=== PATIENT | male | born 1930 | race Caucasian/White ===

== ENCOUNTER 2016-10-09 00:39 | Emergency (ER) | payer MEDICARE, OTHER ==
[~2016-10-09] VITALS: Ht 188 cm; Wt 121.0 kg
[~2016-10-09 00:39] MED LIST: Z.0.NO CURRENT MEDS
[2016-10-09 00:41] VITALS: BP 188/85; PULSE 79; RESP 16; TEMP 98.3; O2SAT 96
[2016-10-09] MEDS ORDERED: NAPR500 PO (00:51)
[2016-10-09 00:58] VITALS: BP 191/81; PULSE 64; O2SAT 97
[2016-10-09 01:03] VITALS: BP 161/70; PULSE 60; RESP 18; O2SAT 97
[2016-10-09] MEDS ORDERED: VANCOMYCIN INJ 1,800 MG in SODIUM CHLORID 0.9% 500 ML INJ 500 ML IV ONE (01:45)
--- NOTE | 2016-10-09 01:59 | RADRPT ---
EXAM DATE/TIME: 10/09/2016 01:49 [facility] COMPARISON: No previous studies available for comparison. INDICATIONS : Hand swelling. MEDICAL HISTORY : None. SURGICAL HISTORY : None. ENCOUNTER: Initial ACUITY: 1 day PAIN SCORE: 0/10 LOCATION: Left hand FINDINGS: Three view examination of the left hand demonstrates no soft tissue swelling, dislocation, or fractur e. The carpal bones appear intact. The interphalangeal and metacarpophalangeal joints are intact. Bony mineralization is normal. CONCLUSION: 1. No acute findings. 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 Glenn Canas MD on October 09, 2016 at 1:56 Board Certified Radiologist. This report was verified electronically.
--- NOTE | 2016-10-09 02:04 | PD ---
HPI Chief Complaint: Injury Time Seen by Provider: 01:23 Travel History International Travel<30 days: No Contact w/Intl Traveler<30days: No Traveled to known affect area: No History of Present Illness HPI Patient is an 86-year-old male who presents to emergency room with complaints of left hand cellulitis. Patient reports that last week on Saturday, he cut his with a knife while washing the dishes. Reports that he was seen by a physician and tetanus was updated. Patient concerned for cellulitis as he noticed increased swelling to his left hand with redness to his wrist. Patient with no fever/chills. No other c/o. PFSH Past Medical History Arthritis: Yes Cancer: No Diabetes: No Patient Takes Glucophage: No Diminished Hearing: No Glaucoma: No Genitourinary: Yes (prostate surgery) Hepatitis: No Hiatal Hernia: No Hypertension: No Inguinal Hernia: Yes Medical other: Yes ([place] PROSTATE) Thyroid Disease: No Tetanus Vaccination: < 5 Years Influenza Vaccination: Yes Past Surgical History Eye Surgery: Yes (CATARACT LEFT EYE) Genitourinary Surgery: Yes (PROSTATECTOMY) Pacemaker: No Prostatectomy: Yes Tonsillectomy: Yes Social History Alcohol Use: No Tobacco Use: No Substance Use: No Allergies-Medications (Allergen,Severity, Reaction): Coded Allergies: famotidine (Verified Allergy, Severe, BLEEDIN ON URINATION AND SEVERE H/A , 10/09/16) Reported Meds & Prescriptions Reported Meds & Active Scripts Active Reported Naprosyn (Naproxen) 500 Mg Tab 500 Mg PO BID Review of Systems General / Constitutional: No: Fever, Chills Eyes: No: Visual changes HENT: No: Headaches Cardiovascular: No: Chest Pain or Discomfort Respiratory: No: Shortness of Breath Gastrointestinal: No: Abdominal Pain Genitourinary: No: Dysuria Musculoskeletal: No: Pain Skin: Positive Other (cellulitis), No Rash Neurologic: No: Weakness Psychiatric: No: Depression Endocrine: No: Polydipsia Hematologic/Lymphatic: No: Easy Bruising Physical Exam Narrative GENERAL: No acute distress, nontoxic SKIN: Focused skin assessment warm/dry. HEAD: Atraumatic. Normocephalic. EYES: Pupils equal and round. No scleral icterus. No injection or drainage. ENT: No nasal bleeding or discharge. Mucous membranes pink and moist. NECK: Trachea midline. No JVD. CARDIOVASCULAR: Regular rate and rhythm. No murmur appreciated. RESPIRATORY: No accessory muscle use. Clear to auscultation. Breath sounds equal bilaterally. GASTROINTESTINAL: Abdomen soft, non-tender, nondistended. Hepatic and splenic margins not palpable. MUSCULOSKELETAL: No obvious deformities. No clubbing. No cyanosis. No edema to RUE LUE: patient with mild swelling to left hand, patient with healing wound to his thumb, patient does have redness to his right wrist - cellulitis is not circumferential. patient with good rom to all fingers as well as wrist, pulses intact, neurovascularly intact NEUROLOGICAL: Awake and alert. No obvious cranial nerve deficits. Motor grossly within normal limits. Normal speech. PSYCHIATRIC: Appropriate mood and affect; insight and judgment normal. Data Data Last Documented VS Vital Signs Date Time Temp Pulse Resp B/P (MAP) Pulse Ox O2 Delivery O2 Flow Rate FiO2 10/09/16 01:03 60 18 161/70 (100) 97 Room Air 10/09/16 00:41 98.3 Orders Orders Hand, Complete (Oip0sau) (10/09/16 ) Basic Metabolic Panel (Bmp) (10/09/16 01:45) Complete Blood Count With Diff (10/09/16 01:45) Iv Access Insert/Monitor (10/09/16 01:45) Vancomycin Inj (Vancomycin Inj) (10/09/16 01:45) Labs Laboratory Tests Test 10/09/16 02:05 White Blood Count 5.1 TH/MM3 Red Blood Count 3.52 MIL/MM3 Hemoglobin 11.2 GM/DL Hematocrit 33.7 % Mean Corpuscular Volume 96.0 FL Mean Corpuscular Hemoglobin 31.9 PG Mean Corpuscular Hemoglobin Concent 33.3 % Red Cell Distribution Width 14.4 % Platelet Count 190 TH/MM3 Mean Platelet Volume 8.4 FL Neutrophils (%) (Auto) 63.8 % Lymphocytes (%) (Auto) 17.8 % Monocytes (%) (Auto) 9.4 % Eosinophils (%) (Auto) 8.4 % Basophils (%) (Auto) 0.6 % Neutrophils # (Auto) 3.2 TH/MM3 Lymphocytes # (Auto) 0.9 TH/MM3 Monocytes # (Auto) 0.5 TH/MM3 Eosinophils # (Auto) 0.4 TH/MM3 Basophils # (Auto) 0.0 TH/MM3 CBC Comment DIFF FINAL Differential Comment Blood Urea Nitrogen 17 MG/DL Creatinine 0.95 MG/DL Random Glucose 91 MG/DL Calcium Level 8.4 MG/DL Sodium Level 142 MEQ/L Potassium Level 4.1 MEQ/L Chloride Level 110 MEQ/L Carbon Dioxide Level 26.9 MEQ/L Anion Gap 5 MEQ/L Estimat Glomerular Filtration Rate 76 ML/MIN MDM Medical Decision Making Medical Screen Exam Complete: Yes Emergency Medical Condition: Yes Interpretation(s) Vital Signs Date Time Temp Pulse Resp B/P (MAP) Pulse Ox O2 Delivery O2 Flow Rate FiO2 10/09/16 01:03 60 18 161/70 (100) 97 Room Air 10/09/16 00:58 64 191/81 (117) 97 10/09/16 00:52 95 Room Air 10/09/16 00:41 98.3 79 16 188/85 (119) 96 Differential Diagnosis Differential includes cellulitis, FB Narrative Course 86 year old male who presents to ER of cellulitis to his left hand - reports that he noticed the redness and swelling after he cut his thumb on a kitchen knife last week on Saturday. Tetanus is up to date. VSS. Patient afebrile xray of hand ordered to evaluate for fb. labs ordered. will give a dose of iv vancomycin Vital Signs Date Time Temp Pulse Resp B/P (MAP) Pulse Ox O2 Delivery O2 Flow Rate FiO2 10/09/16 01:03 60 18 161/70 (100) 97 Room Air 10/09/16 00:58 64 191/81 (117) 97 10/09/16 00:52 95 Room Air 10/09/16 00:41 98.3 79 16 188/85 (119) 96 CBC & BMP Diagram 10/09/16 02:05 Calcium Level 8.4 L Xray of hand: no acute findings. mild to moderate ostearthritis of left wrist and hand Plan to discharge patient home with a prescription for some Bactrim for treatment of cellulitis. Patient will return to the emergency room symptoms worsen or progress. Discussed need for follow-up with his primary care doctor in 2-3 days, he will return to the emergency room as needed. Diagnosis Primary Impression: Cellulitis of left hand excluding fingers and thumb Patient Instructions: General Instructions Additional Instructions: Please take all medications as prescribed Please follow-up with your primary care doctor in 2-3 days Return to the emergency room if symptoms worsen or progress or if you develop any fevers or chills Return to the emergency room as needed. Med/Other Pt SpecificInfo: Prescription(s) given Scripts Sulfamethoxazole-Trimethoprim (Bactrim DS) 800-160 Mg Tab 1 TAB PO BID for Infection, #20 TAB 0 Refills Prov: Sunni Valladares DO 10/09/16 Cephalexin (Keflex) 500 Mg Cap 500 MG PO Q6H for Infection for 10 Days, CAP 0 Refills Prov: Sunni Valladares DO 10/09/16 Disposition: 01 DISCHARGE HOME Condition: Stable Sunni Valladares DO Oct 09, 2016 02:04
[2016-10-09 02:14] LABS: AUTOMATED NEUTROPHIL # 3.2 TH/MM3 (1.8-7.7); BASOPHIL % 0.6 % (0.0-2.0); EOSINOPHIL # 0.4 TH/MM3 (0-0.4); EOSINOPHIL % 8.4 % (0.0-4.0); HEMATOCRIT 33.7 % (39.0-51.0); HEMO FLAGS DIFF FINAL; LYMPH % 17.8 % (9.0-44.0); LYMPHOCYTE # 0.9 TH/MM3 (1.0-4.8); MEAN CORPUSCULAR HEMOGLOBIN 31.9 PG (27.0-34.0); MEAN CORPUSCULAR HGB CONC 33.3 % (32.0-36.0); MONO % 9.4 % (0.0-8.0); NEUT % 63.8 % (16.0-70.0); PLATELET COUNT 190 TH/MM3 (150-450); RED BLOOD COUNT 3.52 MIL/MM3 (4.50-5.90); RED CELL DISTRIBUTION WIDTH 14.4 % (11.6-17.2); WHITE BLOOD COUNT 5.1 TH/MM3 (4.0-11.0)
[2016-10-09 02:44] LABS: BICARBONATE 26.9 MEQ/L (21.0-32.0); POTASSIUM 4.1 MEQ/L (3.5-5.1)
[2016-10-09] MEDS ORDERED: BACT800T5 PO (03:15)
[2016-10-09] MEDS ORDERED: CEPH-460 PO (03:15)
[2016-10-09 04:18] VITALS: PULSE 57; RESP 18; O2SAT 99
[2016-10-09 04:49] VITALS: BP 168/71; PULSE 58; RESP 18; O2SAT 98
[2016-11-12] MEDS ORDERED: NAPR500T PO (12:20)
[2016-11-12] MEDS ORDERED: FERR200T PO (12:20)
[2016-11-12] MEDS ORDERED: OMEG100010 PO (12:20)
[2016-11-12] MEDS ORDERED: TYLE325T PO (13:05)
== END 2016-10-09 05:00 | disposition home or self-care (01) ==
LOC: NEPC 00:39
DX: L03.114 Cellulitis of left upper limb (principal); Z85.46 Personal history of malignant neoplasm of prostate
CPT/HCPCS: 73130; 80048; 85025; 96365; 96366; 99284; J3370; J7040

== ENCOUNTER 2016-10-19 05:41 | Emergency (ER) | payer OTHER ==
[~2016-10-19] VITALS: Ht 188 cm; Wt 115.0 kg
[~2016-10-19 05:41] MED LIST changes: +BACT800T5 PO; +CEPH-460 PO; +NAPR500 PO; -Z.0.NO CURRENT MEDS
[2016-10-19 05:43] VITALS: BP 159/71; PULSE 68; RESP 16; TEMP 98.1; O2SAT 96
--- NOTE | 2016-10-19 06:01 | PD ---
HPI Chief Complaint: Skin Problem Time Seen by Provider: 05:57 Travel History International Travel<30 days: No Contact w/Intl Traveler<30days: No Traveled to known affect area: No History of Present Illness HPI 86-year-old male presents for cellulitis recheck. He was seen here on October 09 after sustaining a accidental wound to the left thumb he had developed cellulitis of the left hand/wrist. He was started on Bactrim and Keflex after receiving an IV dose of vancomycin. At that time he is having erythema of the skin. He reports that the pain, redness of the skin has completely resolved and he wanted to be reevaluated to make sure that he did not need additional antibiotics. He is on his last day of Bactrim. He reports a slight "heaviness " sensation in the dorsum of the left hand but beyond that he is completely asymptomatic. Denies fevers, chills, drainage, new injury. No history of diabetes, is not on any immunosuppressive medication. No other complaints. PFSH Past Medical History Arthritis: Yes Cancer: No Diabetes: No Diminished Hearing: No Glaucoma: No Genitourinary: Yes (prostate surgery) Hepatitis: No Hiatal Hernia: No Hypertension: No Inguinal Hernia: Yes Medical other: Yes ([place] PROSTATE) Thyroid Disease: No Past Surgical History Eye Surgery: Yes (CATARACT LEFT EYE) Genitourinary Surgery: Yes (PROSTATECTOMY) Pacemaker: No Prostatectomy: Yes Tonsillectomy: Yes Other Surgery: Yes Social History Alcohol Use: No Tobacco Use: No Substance Use: No Allergies-Medications (Allergen,Severity, Reaction): Coded Allergies: famotidine (Verified Allergy, Severe, BLEEDIN ON URINATION AND SEVERE H/A , 10/19/16) Reported Meds & Prescriptions Reported Meds & Active Scripts Active Bactrim DS (Sulfamethoxazole-Trimethoprim) 800-160 Mg Tab 1 Tab PO BID Keflex (Cephalexin) 500 Mg Cap 500 Mg PO Q6H 10 Days Reported Naprosyn (Naproxen) 500 Mg Tab 500 Mg PO BID Review of Systems Except as stated in HPI: all other systems reviewed are Neg Physical Exam Narrative GENERAL: Well-developed well-nourished male in no acute distress SKIN: Warm and dry. No erythema, no induration, no tenderness to palpation. HEAD: Atraumatic. Normocephalic. EYES: Pupils equal and round. No scleral icterus. No injection or drainage. ENT: No nasal bleeding or discharge. Mucous membranes pink and moist. NECK: Trachea midline. No JVD. CARDIOVASCULAR: Regular rate and rhythm. No murmur appreciated. RESPIRATORY: No accessory muscle use. Clear to auscultation. Breath sounds equal bilaterally. MUSCULOSKELETAL: Full range of motion of the left hand, wrist, forearm with no discomfort, no soft tissue swelling, no cellulitic changes. NEUROLOGICAL: Awake and alert. No obvious cranial nerve deficits. Motor grossly within normal limits. Normal speech. Data Data Last Documented VS Vital Signs Date Time Temp Pulse Resp B/P (MAP) Pulse Ox O2 Delivery O2 Flow Rate FiO2 10/19/16 05:43 98.1 68 16 159/71 (100) 96 Room Air MDM Medical Decision Making Medical Screen Exam Complete: Yes Emergency Medical Condition: Yes Medical Record Reviewed: Yes Differential Diagnosis Resolved cellulitis, worsening cellulitis, abscess, osteomyelitis, necrotizing fasciitis, erysipelas, tenosynovitis Narrative Course Physical examination reveals no evidence of infectious process. Recommended finishing his Bactrim prescription. Discussed signs and symptoms of worsening infection outboard returning to the emergency room. Stable for discharge. Diagnosis Primary Impression: Cellulitis Qualified Codes: L03.90 - Cellulitis, unspecified Additional Instructions: Finish the prescriptions as prescribed. As discussed, monitor for signs of worsening infection such as increasing redness, increasing pain, red streaks up the arm, fevers and return for any evidence of worsening infection. Med/Other Pt SpecificInfo: No Change to Meds Disposition: 01 DISCHARGE HOME Condition: Stable Curtis Bui Oct 19, 2016 06:01
[2016-11-12] MEDS ORDERED: NAPR500T PO (12:20)
[2016-11-12] MEDS ORDERED: FERR200T PO (12:20)
[2016-11-12] MEDS ORDERED: OMEG100010 PO (12:20)
[2016-11-12] MEDS ORDERED: TYLE325T PO (13:05)
== END 2016-10-19 06:22 | disposition home or self-care (01) ==
LOC: NEPD 05:41
DX: L03.90 Cellulitis, unspecified (principal); Z87.39 Personal history of other diseases of the musculoskeletal system and connective tissue; Z87.448 Personal history of other diseases of urinary system
CPT/HCPCS: 99281; 99282

== ENCOUNTER → 2016-11-12 | Outpatient (CLI) | payer OTHER ==
[~2016-11-12] MED LIST changes: +ADJUSTABLE COMM1 MIS; -BACT800T5 PO; -CEPH-460 PO; +FERR200T PO; +HYDR-3583 PO; -NAPR500 PO; +NAPR500T PO; +OMEG100010 PO; +TYLE325T PO; +WALKER WHEELS/F1 MIS; +XARE10TA PO
== END ==
LOC: CPRE 11:55
PROVIDERS: ATTEND Orthopaedic Surgery Orthopaedic Surgery of the Spine
DX: M16.11 Unilateral primary osteoarthritis, right hip (principal)

== ENCOUNTER 2016-11-20 05:42 | Inpatient (IN) | payer OTHER, MEDICARE ==
[~2016-11-20] VITALS: Ht 188 cm; Wt 115.6 kg
[~2016-11-20 05:42] MED LIST changes: -ADJUSTABLE COMM1 MIS; -HYDR-3583 PO; -WALKER WHEELS/F1 MIS; -XARE10TA PO
[2016-11-20] MEDS ORDERED: LACTATED RINGER'S 1000 ML IV PRN (06:30)
[2016-11-20] MEDS ORDERED: VANCOMYCIN 1000 MG/NS 250 ML (for <70 kg) IV SCH ×2 (06:30)
[2016-11-20] MEDS ORDERED: INSULIN HUMAN REGULAR 1,000 UNITS/10 ML VIAL SQ PRN (06:30)
[2016-11-20] MEDS ORDERED: SODIUM CHLORID 0.9% 500 ML IV PRN (06:30)
[2016-11-20] MEDS ORDERED: ceFAZolin 2 GM PREMIX 50 ML IV SCH (06:30)
[2016-11-20] MEDS ORDERED: POVIDONE IODINE 7.5% SCRUB 118 ML BOTTLE TOPICAL SCH (06:30)
[2016-11-20] MEDS ORDERED: CHLORHEXIDINE GLUCONATE 2 % 1 PACK (2 CLOTHS) TOPICAL PRN (06:30)
[2016-11-20] MEDS ORDERED: METOPROLOL TARTRATE 25 MG TAB PO PRN (06:30)
[2016-11-20] MEDS ORDERED: TRANEXAMIC ACID IV SCH (06:30)
[2016-11-20] MEDS ORDERED: SODIUM CHLORIDE 0.9% IV SCH (06:30)
[2016-11-20] MEDS ORDERED: POVIDONE IODINE 5% (ANTISEPSIS KIT) 4 APPLICATIONS EACH NARE PRN (06:30)
[2016-11-20] MEDS ORDERED: EXPAREL PERI-ARTICULAR INJECTION (TOTAL VOL. 60 ML) P-ARTICULR SCH ×2 (06:30)
[2016-11-20] MEDS ORDERED: GENTAMICIN SULFATE 80 MG/2 ML VIAL ONE (06:52)
[2016-11-20 07:32] LABS: BLOOD, URINE NEG (NEG); COMMENT (UR) CULT NOT INDICATED; CULTURE IF INDICATED CULT NOT INDICATED; GLUCOSE,URINE NEG (NEG); KETONE, URINE NEG (NEG); MUCUS URINE FEW /lpf (OCC); NITRITE,URINE NEG (NEG); SQUAMOUS EPITHELIAL CELL URINE 1 /hpf (0-5); URINE COLOR YELLOW (YELLW/STRAW)
[2016-11-20] MEDS ORDERED: NALOXONE HCL 0.4 MG/ML AMP IV PRN (11:30)
[2016-11-20] MEDS ORDERED: ALUMINUM/MAGNESIUM/SIMETH 30 ML CUP PO PRN (11:30)
[2016-11-20] MEDS ORDERED: MISCELLANEOUS NURSING INFORMATION XX PRN (11:30)
[2016-11-20] MEDS ORDERED: MORPHINE SULFATE 8 MG/ML INJ IM PRN (11:30)
[2016-11-20] MEDS ORDERED: ONDANSETRON HCL 4 MG/2 ML VIAL IVP PRN (11:30)
[2016-11-20] MEDS ORDERED: TEMAZEPAM 15 MG CAP PO PRN (11:30)
[2016-11-20] MEDS ORDERED: ACETAMINOPHEN/HYDROcodone 325 MG/10 MG TAB PO PRN (11:30)
[2016-11-20] MEDS ORDERED: Post-op Orders (for Pharmacy) MISC XX ONE (11:30)
--- NOTE | 2016-11-20 11:30 | PD.OP ---
cc: Marquis Rogers. Operative Report Date of Surgery: Nov 20, 2016 Preoperative Diagnosis: Osteoarthritis right hip Postoperative Diagnosis: Same Procedure: Right total hip replacement arthroplasty Anesthesia: Gen. Surgeon: Marquis Rogers Sane Nurse(s): DARLIN Madrid Operation and Findings: EBL: 200 cc INDICATION: This patient is an 86-year-old white male. He has a BMI of 33. He has a significant anterior PMS. He has long-term treatment of osteoarthritis of the right hip. He's had a previous left total hip replacement and has done well elsewhere. He presents for posterior total hip replacement. NOTE: Roopa Madrid PA-C was present for the entire surgical procedure as my public relations assistant. In my medical opinion her skill and care was necessary for the proper management of this patient. COMPONENTS: COMPANY: [employer] CUP: [place], 56 mm, 100 series STEM: Size 7, high offset, [place], press-fit HEAD: 36 mm, +1.5 neck length, 12/14 taper PROCEDURE: This patient was brought to the operating room and anesthetized in the supine position and positioned on the routine table in the clean air suite. The patient was then rolled to a right side up lateral position and held with a Biomet hip positioner. The hip and leg was scrubbed with alcohol followed by Hibiclens followed by chloro prep and draped sterilely. A timeout was done and antibiotics were given within a routine time window. A 4 inch incision was made starting along the posterior one third of the greater trochanter. The iliotibial band was opened in line with the incision. The Charnley retractors were positioned. The posterior capsule and external rotators were taken down together in a sleeve. The sciatic nerve was palpated to be free of any obstruction or compression and posterior to the hip joint without any evidence of traction from the retractor. The neck was exposed. Deep retractors allowed good visualization. The neck was osteotomized at the right location and the head and neck was taken to the back table. The acetabulum was inspected. Deep retractors were positioned. The acetabulum was deepened down to the floor and started with a proper size reamer and reaming up to 55 mm. This was trialed with the same size trial. Overall fit was satisfactory. The final cup was placed in approximately 40 of abduction and 30 of forward flexion. The final liner was positioned. Retractors were positioned allowing good visualization of the proximal femur. A box osteotome was utilized followed by progressive broaching for the Preston stem. This was reamed and broached and eventually advanced to a size 56 stem. A trial reduction showed satisfactory stability. Offset was satisfactory. Leg length was reestablished. At 90 of flexion it was stable to 50 of internal rotation. The hip could not be subluxed anteriorly. The canal was irrigated copiously. The final stem was inserted in approximately 20 of anteversion. The final head was impacted. The hip was reduced and stability, offset and leg length was as previously noted. The posterior capsule and external rotators were repaired through bone with interrupted #2 Tycron sutures. The piriformis muscle was repaired with the same. The iliotibial band with interrupted #1 Vicryl sutures. Subcutaneous tissue was approximated with 2-0 Vicryl suture and skin with running intradermal 3-0 Vicryl followed by Steri-Strips and benzoin. A sterile dressing was applied.. The sponge count needle counts and instrument counts were all correct. The patient was awakened and taken to the recovery room in satisfactory condition FINDINGS: There was severe osteoarthritis of the right hip. The final solution was excellent. Stability was quite good. No complication could be appreciated. Marquis Rogers MD Nov 20, 2016 11:30
[2016-11-20] MEDS ORDERED: XARE10TA PO (11:35)
[2016-11-20] MEDS ORDERED: HYDR-3583 PO (11:35)
[2016-11-20] MEDS ORDERED: ROCURONIUM INJ 50 MG/5 ML SYRINGE IV PUSH ONE (12:00)
[2016-11-20] MEDS ORDERED: ePHEDrine/NS 25 MG/5 ML SYR IV ONE (12:00)
[2016-11-20] MEDS ORDERED: GLYCOPYRROLATE 1 MG/5 ML SYRINGE IV PUSH ONE (12:00)
[2016-11-20] MEDS ORDERED: DEXAMETHASONE SOD PHOS 4 MG/ML VIAL IV ONE (12:00)
[2016-11-20] MEDS ORDERED: LIDOCAINE HCL 1% PF 5 ML AMPULE OTHER ONE (12:00)
[2016-11-20] MEDS ORDERED: MORPHINE SULFATE 4 MG/ML INJ IV ONE (12:00)
[2016-11-20] MEDS ORDERED: ONDANSETRON HCL 4 MG/2 ML VIAL IV PUSH ONE (12:00)
[2016-11-20] MEDS ORDERED: NEOSTIGMINE 3 MG/3 ML SYR IV ONE (12:00)
[2016-11-20] MEDS ORDERED: PROPOFOL 200 MG/20 ML AMP IV ONE (12:00)
[2016-11-20] MEDS ORDERED: MORPHINE SULFATE 30 MG/30 ML PCA IV SCH (12:00)
[2016-11-20] MEDS: LACTATED RINGER'S 1000 ML INJ 1,000 ML IV SCH (12:00)
[2016-11-20] MEDS ORDERED: PHENYLEPH/NS 1000 MCG/10 ML SYR IV ONE (12:00)
[2016-11-20] MEDS ORDERED: DO NOT ADM ANY ANTICOAGULANT DRUGS PRN (12:02)
[2016-11-20] MEDS ORDERED: SODIUM CHLORIDE 0.9% FLUSH 10 ML FLUSH IV FLUSH PRN (12:15)
[2016-11-20] MEDS ORDERED: GLYCOPYRROLATE 0.2 MG/ML VIAL ONE (12:28)
[2016-11-20] MEDS ORDERED: GLYCOPYRROLATE 0.2 MG/ML VIAL IV PUSH ONE (13:30)
--- NOTE | 2016-11-20 14:12 | RADRPT ---
EXAM DATE/TIME: 11/20/2016 13:40 [facility] COMPARISON: No previous studies available for comparison. INDICATIONS : Post op right total hip. MEDICAL HISTORY : Unobtainable. SURGICAL HISTORY : Unobtainable. ENCOUNTER: Initial ACUITY: 1 day PAIN SCORE: Non-responsive. LOCATION: Right hip FINDINGS: Examination of the hip demonstrates total hip arthroplasty in satisfactory position. The alignment is anatomic. CONCLUSION: Post surgical changes as above. Josias Barnes MD on November 20, 2016 at 14:10 Board Certified Radiologist. This report was verified electronically.
--- NOTE | 2016-11-20 16:38 | EKG ---
Date Performed: 11/20/2016 Time Performed: 06:55:25 PTAGE: 86 years EKG: SINUS BRADYCARDIA BORDERLINE ECG NO PREVIOUS TRACING DOCTOR: Xena Brunner Interpretating Date/Time 11/20/2016 16:34:26
[2016-11-20 17:44] VITALS: BP 158/67; PULSE 57; RESP 17; TEMP 97; O2SAT 100
[2016-11-20 18:25] VITALS: O2SAT 97
[2016-11-20 19:54] VITALS: BP 145/68; PULSE 81; RESP 18; TEMP 98.1; O2SAT 98
[2016-11-20] MEDS: MAGNESIUM HYDROXIDE SUSP 30 ML CUP PO SCH (20:20)
[2016-11-20] MEDS: SODIUM CHLORIDE 0.9% FLUSH 10 ML FLUSH IV FLUSH SCH (20:20)
[2016-11-20] MEDS: SENNOSIDES 8.6 MG TAB PO SCH (20:20)
[2016-11-20] MEDS: PCA - TOTAL MG MORPHINE DELIVERED PER SHIFT SCH (20:25)
--- NOTE | 2016-11-20 21:22 | HHI.DS ---
Discharge Summary Admission Date Nov 20, 2016 at 05:42 Discharge Date: Nov 23, 2016 Admitting Diagnosis see below Diagnosis: (1) Osteoarthritis of right hip Diagnosis: Principal ICD Codes: M16.11 - Unilateral primary osteoarthritis, right hip Procedures Right total hip arthroplasty, posterior approach Brief History This is a 86 year old male patient with a history of right hip pain for about 2 years. He had a history of left hip arthritis and underwent left total hip arthroplasty with good success. Imaging studies were performed of his right hip showing moderate to severe osteoarthritis. He underwent a right hip injection which did not help much. He was placed on naprosyn but this provided only mild relief. After a period of time surgical treatment was recommended in the form of right total hip arthroplasty. He agreed and presents for the above procedure. Significant Findings Laboratory Tests Test 11/20/16 06:55 Urine Mucus FEW /lpf (OCC) Hospital Course Surgical treatment was performed on the day of admission without complication. He recovered well in PACU and was transferred to the orthopedic floor. Pain was controlled with IV and oral medications. DVT prophylaxis was initiated postop day 1 with Xarelto 10 mg. The patient was very challenging and confrontational with the nursing staff. He went for external beam radiation for prevention of heterotopic ossification and found his pain to increased after the transfer. This improved the next day but the patient slipped when attempting to get out of bed at night without calling for any assistance. He did eventually comply with physical therapy postop day 2. After 3 days he was found to be stable and discharged to a [facility] facility. He was educated to be compliant with physical therapy, to be courteous to the medical staff, to continue his xarelto for 2 weeks and to take his [place] as needed. Pt Condition on Discharge: Stable Discharge Disposition: Disch w/ Home Health Serv Discharge Instructions Diet Instructions: As Tolerated, No Restrictions, High Fiber Diet Activities You Can Perform: Weight Bearing as Eva Additional Activity Instruc.: GRACE, posterior protocol New Medications: Adjustable Commode 3-in-1 (Adjustable Commode 3-in-1) 1 Mis Mis EA .ROUTE DIRECTED, #1 Walker with Front Wheels (Walker with Front Wheels) 1 Mis Mis EA .ROUTE DIRECTED, #1 0 Refills Hydrocodone-Acetaminophen (Hydrocodone-Acetaminophen) 10-325 mg Tab 1 TAB PO Q4H PRN for PAIN, #25 TAB Rivaroxaban (Xarelto) 10 Mg Tab 10 MG PO Q24H for Prevent Blood Clot, #25 TAB Continued Medications: Acetaminophen (Tylenol) 325 Mg Tab 650 MG PO Q4H PRN for PAIN SCALE 6 TO 10, TAB 0 Refills Ferrous Sulfate (Feosol) 325 Mg (65 Mg Iron) Tab 200 MG PO DAILY for Nutritional Supplement, #30 TAB 0 Refills Naproxen (Naproxen) 500 Mg Tab 500 MG PO BID, #60 TAB 0 Refills [place]-3 Fatty Acids ([place] 3 1000 mg) 300 Mg-1,000 Mg Cap 1 TAB PO DAILY Marta Bryson Nov 20, 2016 21:22
--- NOTE | 2016-11-20 21:36 | HHI.FF ---
Face to Face Verification Diagnosis: (1) Osteoarthritis of right hip Physical Therapy Gait training, Safety evaluation Hip: Total hip, Protocol: Right, Posterior hip precautions, Abduction pillow while in bed, Progress to weight bearing Right LE Weight Bearing: WB as tolerated Additional Instructions PT 4 days/wk for 2 weeks. WBAT RLE. R GRACE, posterior precautions. Gait training. Walker as needed. Abduction pillow when in bed for 3 weeks. Nursing RN Days per Week: 2 x Week(s): 1 Dressing Changes: Do not change dressing Additional Instructions Vitals assessment. Hold dressing changes unless saturated or erythema. I have seen patient Tom Buck on 11/20/16. My clinical findings support the need for the requested home health care services because: Limited ability to care for self High risk of falls I certify that my clinical findings support that this patient is homebound because: Post-op weakness Unsteady gait/balance Marta Bryson Nov 20, 2016 21:36
[2016-11-20] MEDS ORDERED: ADJUSTABLE COMM1 MIS (21:37)
[2016-11-20] MEDS ORDERED: WALKER WHEELS/F1 MIS (21:37)
[2016-11-20 23:39] VITALS: BP 124/60; PULSE 85; RESP 18; TEMP 97.8; O2SAT 96
[2016-11-21] VITALS (8 sets, daily range): BP systolic 130–165; BP diastolic 60–91; PULSE 71–115; RESP 16–19; TEMP 97–98; O2SAT 95–97
[2016-11-21] MEDS: LACTATED RINGER'S 1000 ML INJ 1,000 ML IV SCH (02:53)
[2016-11-21] MEDS: PCA - TOTAL MG MORPHINE DELIVERED PER SHIFT SCH ×2 (06:00→14:00)
[2016-11-21 06:16] LABS: HEMATOCRIT 33.2 % (39.0-51.0); REVIEW FLAG FINAL
[2016-11-21] MEDS: SODIUM CHLORIDE 0.9% FLUSH 10 ML FLUSH IV FLUSH SCH ×2 (09:00→20:37)
[2016-11-21] MEDS ORDERED: INFLUENZA VIRUS VACCINE (QUADRIVALENT) 0.5 ML SYR IM ONE (10:00)
[2016-11-21] MEDS ORDERED: PNEUMOCOCCAL POLYVALENT INJ 25 MCG/0.5 ML SYR IM ONE (10:00)
--- NOTE | 2016-11-21 10:55 | RC ---
cc: NONA PARK MDSHAMIR MANLEY DATE OF SERVICE 11/21/2016 DATE OF 1930. REFERRING PHYSICIAN Dr. 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 STAGE Not applicable. CHIEF COMPLAINT Right hip surgery. REASON FOR VISIT The patient is being evaluated for prophylactic radiotherapy to the right hip for HO prevention. HISTORY OF PRESENT ILLNESS This is an 86-year-old white male with a longstanding history of chronic osteoarthritis of the right hip. The patient was seen in consultation by Dr. Rogers and Dr. Francisco to undergo right total hip replacement arthroplasty which was performed on 11/20/2016. Dr. Rogers discussed with the patient the use of radiation therapy prophylactically to prevent heterotopic bone formation. The patient has now been referred to me for discussion of radiotherapy treatment options for HO prevention. PAST MEDICAL HISTORY 1. As above. 2. Bilateral cataract surgery. 3. History of tonsillectomy. 4. Hearing problems. 5. Dental problems. 6. History of vena cava filter. 7. History of hernia repair. 8. History of prostatectomy for prostatic carcinoma. 9. Inguinal hernia repair. 10. History of arthritis. 11. History of left hip replacement in 1996. MEDICATIONS 1. Suboxone. 2. Pneumonia vaccine. 3. Flu vaccine. 4. Senokot. 5. Rubinol. 6. Morphine. 7. [place]. 8. Restoril. 9. Narcan. 10. Lansoprazole. ALLERGIES No known drug allergies. FAMILY HISTORY No history of carcinoma in the family para SOCIAL HISTORY The patient denies smoking or major EtOH intake. REVIEW OF SYSTEMS CONSTITUTIONAL: the patient denies any loss of appetite. ALLERGIC: The patient denies any major allergic reactions recently. EYES: Unremarkable. ENT: Unremarkable. NECK: Unremarkable. INTEGUMENTARY: Unremarkable. CARDIOVASCULAR: Denies any chest pain. No sings or symptoms of CT. RESPIRATORY: Unremarkable. Denies any wheezing, hemoptysis or cough. GASTROINTESTINAL: Unremarkable. GENITOURINARY: Unremarkable. MUSCULOSKELETAL: History of arthritis. NEUROLOGIC: Unremarkable. No issues with balance, paresthesia, seizure or stroke. PSYCHIATRIC: Unremarkable. ENDOCRINE: Unremarkable. HEMATOLOGICAL: Unremarkable. DERMATOLOGIC: Unremarkable. PHYSICAL EXAMINATION GENERAL: The patient is alert and oriented x 3, in no acute distress. VITAL SIGNS: At the present time vital signs are stable. Temperature 97.6, pulse 71, respiratory rate 18, blood pressure 148/62, pulse ox 97% on room air. LUNGS: To auscultation the bilateral lungs are clear to auscultation with good ventilatory/respiratory effort. HEART: Heart regular rate and rhythm, without murmurs. NECK: Palpation of the neck and bilateral supraclavicular areas are free. ABDOMEN: Palpation of the abdominal cavity reveals no hepatosplenomegaly detected. No periumbilical mass. EXTREMITIES: No lower extremity defect detected. On the right there is surgical site with no active discharge, dehiscence, infection or bleeding. No signs of cellulitis detected around the surgical entrance areas. There is slight discomfort over the right inguinal area. NEUROLOGIC: No neurological deficits detected. Cognitive function is preserved. Motor function is preserved. No other positive findings. RADIOLOGY X-ray of the hip on 11/20/2016. IMPRESSION: Postsurgical changes. ASSESSMENT An 86-year-old male with the diagnosis of osteoarthritis of the right hip status post total hip replacement. The patient is being evaluated for adjuvant radiotherapy for prevention of heterotrophic bone. PLAN I had detailed discussion with the patient in front of the nurse. I discussed the merits of postoperative radiation therapy. The discussed alternatives including indomethacin use. I discussed the pros and cons of radiation therapy, side effects, complications to include but not limited to weakness and fatigue, decreased blood counts, edema of the skin, necrosis of the skin, erythema of the skin, nausea and vomiting, diarrhea, decreased sperm counts, wound dehiscence, infection and bleeding. I discussed failure of the treatment and he understands it not 100% effective. I discussed failure of the implanted hip. He understands the purpose of the radiation therapy which is to prevent heterotrophic bone formation and to maximize the mobility of the hip following surgical resection. He understands the alternatives of radiation therapy. After a thorough discussion the patient wanted to proceed forward with radiation therapy and a consent form was signed. The patient will be simulated today and to be treated today. The patient was advised, if I could be of any further assistance, to please let me know. Dr. Rogers, thank you very much for referring this patient and allowing me to participate in his care. Should you have any further questions or concerns, please do not hesitate to contact me. Nona Park MD Radiation Oncologist SALINA GALVAN /9:58 AM /10:22 AM MTDDarien
[2016-11-21] MEDS: RIVAROXABAN 10 MG TAB PO SCH (11:57)
[2016-11-21] MEDS: MAGNESIUM HYDROXIDE SUSP 30 ML CUP PO SCH ×2 (11:57→20:35)
[2016-11-21] MEDS ORDERED: MISCELLANEOUS PHARMACY INFORMATION XX ONE (12:00)
--- NOTE | 2016-11-21 13:48 | HHI.DCPOC ---
Discharge Care Plan Diagnosis: (1) Osteoarthritis of right hip Your Health Problems Are: Incision/Drains Swelling Goals to Promote Your Health * To prevent worsening of your condition and complications * To maintain your health at the optimal level Directions to Meet Your Goals Take your medications as prescribed Follow your dietary instruction Follow activity as directed Keep your appointments as scheduled Take your immunizations and boosters as scheduled If your symptoms worsen call your PCP, if no PCP go to Urgent Care Center or Emergency Room Smoking is Dangerous to Your Health. Avoid second hand smoke Call the 24-hour hour crisis hotline for domestic abuse at Marta Bryson Nov 21, 2016 13:48
--- NOTE | 2016-11-21 14:03 | PD.ORT.PN ---
Subjective Subjective Remarks From the moment I entered the room the patient was very upset and stated ' finally.. do you know what happened to me?' Before we could discuss his postop course he immediately begins talking about his experience with the radiology department. He was transitiioned to a stretcher this morning so he could be transported for his evaluation for XRT postop. Apparently there were several female staff members helping who he felt were not strong enough to move him and they transitioned him without supporting his right leg. He felt as though it caused him much more pain. Unfortunately when the patient asks a question he does not wait for an answer. He continues to cut off the myself and the staff. He spoke with Demetrice this morning. They are trying to coordinate with radiology to make sure the proper staff are available for when he goes to his treatment this afternoon. He also makes an odd request about cutting off the catheter tubing and using tape so he won't have to have it removed. He is resistant to removing his catheter because of its 'inconvenience'. At no point did he request to speak about the course of his surgery yesterday. Objective Vitals Vital Signs Date Time Temp Pulse Resp B/P (MAP) Pulse Ox O2 Delivery O2 Flow Rate FiO2 11/21/16 08:00 97.0 89 19 142/69 (93) 96 11/21/16 07:00 Nasal Cannula 4.00 11/21/16 03:02 97.6 71 18 148/62 (90) 97 11/20/16 23:39 97.8 85 18 124/60 (81) 96 11/20/16 19:54 98.1 81 18 145/68 (93) 98 11/20/16 18:25 97 11/20/16 17:44 97.0 57 17 158/67 (97) 100 11/20/16 17:00 98.6 59 23 155/70 (98) 98 Nasal Cannula 2 11/20/16 16:00 52 19 144/73 (96) 99 Nasal Cannula 2 11/20/16 15:00 69 22 164/72 (102) 97 Nasal Cannula 2 11/20/16 14:00 48 20 170/77 (108) 98 Nasal Cannula 2 I/O 10/3/17 10/3/17 10/3/17 10/4/17 10/4/17 10/4/17 07:00 15:00 23:00 07:00 15:00 23:00 Intake Total 1750 ml 1849 ml 1559 ml Output Total 950 ml 1550 ml 1700 ml Balance 800 ml 299 ml -141 ml Intake Oral 920 ml 720 ml IV Total 1750 ml 929 ml 839 ml Output Urine Total 750 ml 1550 ml 1700 ml Estimated Blood Loss 200 ml # Bowel Movements 0 0 Result Diagram: 11/21/16 0606 Procedures Right total hip arthroplasty, posterior approach Objective Remarks Sitting up in chair, RN at bedside NAD, very upset about peripheral issues VSS RLE Dressing c/d/i, no drainage, some tenderness anterior thigh, no erythema thigh and calf both supple, neg homans distal +AT motor, +sens, +nvi Assessment & Plan Ortho Post Op Day #: 1 Problem List: (1) Osteoarthritis of right hip ICD Codes: M16.11 - Unilateral primary osteoarthritis, right hip Qualifiers: Qualified Codes: M16.11 - Unilateral primary osteoarthritis, right hip Assessment and Plan pod#1 s/p R GRACE, posterior Stable though complaining of increased right hip pain after transition this morning. I have no reason to believe he had a traumatic dislocation at this time as his limb is in stable position and when requested and lifts and rotates without much difficulty. Continue [employer] for pain control. Xarelto 10mg qd Hold dressing changes unless saturated. XRT this afternoon with appropriate staffing for patient confidence. D/C catheter today after XRT. D/C planning, [facility] or sat. F2F signed. DME written he requests a large 3:1 as he is a large man. Marta Bryson Nov 21, 2016 14:03
[2016-11-21] MEDS: ACETAMINOPHEN/HYDROcodone 325 MG/10 MG TAB PO PRN (14:12)
[2016-11-21] MEDS: SENNOSIDES 8.6 MG TAB PO SCH (20:37)
[2016-11-22] VITALS (8 sets, daily range): BP systolic 120–156; BP diastolic 56–88; PULSE 71–96; RESP 16–19; TEMP 96.3–98.7; O2SAT 93–97
[2016-11-22] MEDS: LACTATED RINGER'S 1000 ML INJ 1,000 ML IV SCH ×3 (00:30→20:09)
[2016-11-22] MEDS: ACETAMINOPHEN/HYDROcodone 325 MG/10 MG TAB PO PRN ×2 (08:45→19:27)
[2016-11-22] MEDS: MAGNESIUM HYDROXIDE SUSP 30 ML CUP PO SCH ×2 (08:45→20:11)
[2016-11-22] MEDS: SODIUM CHLORIDE 0.9% FLUSH 10 ML FLUSH IV FLUSH SCH ×2 (08:47→20:08)
--- NOTE | 2016-11-22 08:49 | PD.ORT.PN ---
Subjective Subjective Remarks Patient states that he had a slip and fall last night due to 'these terrible stockings you make me wear on this waxed floor...why would you do that". He states that no one came and saw him yesterday but when I confront him about our conversation he then says 'so what, the doctor wasn't here..where's the doctor' . He states his right hip hurts but 'is fine'. He denies any new radiating leg pain, CP, SOB or abd pain. Objective Vitals Vital Signs Date Time Temp Pulse Resp B/P (MAP) Pulse Ox O2 Delivery O2 Flow Rate FiO2 11/22/16 08:00 97.9 73 17 120/58 (78) 95 11/22/16 04:10 96.3 82 19 156/88 (110) 96 11/22/16 00:10 98.7 96 16 133/56 (81) 96 11/21/16 23:10 98.0 80 17 155/91 (112) 96 11/21/16 22:10 97.9 99 17 165/82 (109) 95 11/21/16 21:10 97.5 97 16 152/88 (109) 95 11/21/16 20:10 115 16 136/67 (90) 96 11/21/16 16:25 Room Air 11/21/16 16:00 97.8 81 19 133/64 (87) 97 11/21/16 12:00 97.4 91 19 130/60 (83) 97 I/O 11/21/16 11/21/16 11/21/16 11/22/16 11/22/16 11/22/16 07:00 15:00 23:00 07:00 15:00 23:00 Intake Total 1559 ml 720 ml 480 ml 480 ml Output Total 1700 ml 700 ml Balance -141 ml 20 ml 480 ml 480 ml Intake Oral 720 ml 720 ml 480 ml 480 ml IV Total 839 ml Output Urine Total 1700 ml 700 ml # Voids 3 2 # Bowel Movements 0 0 0 0 Result Diagram: 11/21/16 0606 Procedures Right total hip arthroplasty, posterior approach Objective Remarks Sitting up in bed, NAD, frustrated, VSS RLE Dressing c/d/i, no drainage, some tenderness anterior thigh, no erythema thigh and calf both supple, neg homans distal +AT motor, +sens, +nvi Assessment & Plan Ortho Post Op Day #: 2 Problem List: (1) Osteoarthritis of right hip ICD Codes: M16.11 - Unilateral primary osteoarthritis, right hip Qualifiers: Qualified Codes: M16.11 - Unilateral primary osteoarthritis, right hip Assessment and Plan pod#2 s/p R GRACE, posterior I spoke to the nursing staff. He attempted to get out of bed without asking for help and fell at bedside. He denies any new pain but complains of continued pain. I will have Dr. Rogers speak to the patient today as that seems to be one of his complaints of many. D/C TAPE SEWER - change to po pain meds. Xarelto 10mg qd Hold dressing changes unless saturated. D/C planning, he is not a stable or good candidate for home hc. Will set up for SNF, likely tomorrow is pt is compliant. F2F signed. DME written he requests a large 3:1 as he is a large man. 3001 also signed. Marta Bryson Nov 22, 2016 08:49
[2016-11-22] MEDS: RIVAROXABAN 10 MG TAB PO SCH (11:26)
[2016-11-22] MEDS: SENNOSIDES 8.6 MG TAB PO SCH (20:11)
[2016-11-23 00:10] VITALS: BP 145/70; PULSE 75; RESP 16; TEMP 97.9; O2SAT 96
--- NOTE | 2016-11-23 07:49 | PD.ORT.PN ---
Subjective Subjective Remarks Patient has very different attitude today. He is no longer confrontational. He talks about 'fighting with staff yesterday but he actually really likes it here'. He denies any new right hip pain. He would prefer to 'stay in his room and do rehab for the next 2 weeks'. He denies any new radiating leg pain, CP, SOB or abd pain. Objective Vitals Vital Signs Date Time Temp Pulse Resp B/P (MAP) Pulse Ox O2 Delivery O2 Flow Rate FiO2 11/23/16 00:10 97.9 75 16 145/70 (95) 96 11/22/16 20:10 97.8 83 17 148/63 (91) 97 11/22/16 16:10 97.3 74 17 130/61 (84) 96 11/22/16 12:10 98.0 71 17 136/60 (85) 96 11/22/16 12:00 97.9 77 17 136/64 (88) 96 11/22/16 09:45 16 11/22/16 08:10 97.9 77 17 124/61 (82) 93 11/22/16 08:00 97.9 73 17 120/58 (78) 95 I/O 11/22/16 11/22/16 11/22/16 11/23/16 11/23/16 11/23/16 07:00 15:00 23:00 07:00 15:00 23:00 Intake Total 480 ml 960 ml 600 ml 300 ml Output Total 275 ml Balance 480 ml 960 ml 600 ml 25 ml Intake Oral 480 ml 960 ml 600 ml 300 ml Output Urine Total 275 ml # Voids 2 2 2 # Bowel Movements 0 0 Result Diagram: 11/21/16 0606 Procedures Right total hip arthroplasty, posterior approach Objective Remarks Laying in bed, NAD, VSS RLE Dressing c/d/i, no drainage, some tenderness anterior thigh, no erythema thigh and calf both supple, neg homans distal +AT motor, +sens, +nvi Assessment & Plan Ortho Post Op Day #: 3 Problem List: (1) Osteoarthritis of right hip ICD Codes: M16.11 - Unilateral primary osteoarthritis, right hip Qualifiers: Qualified Codes: M16.11 - Unilateral primary osteoarthritis, right hip Assessment and Plan pod#3 s/p R GRACE, posterior Ortho stable. He has a very different attitude today likely because he wants to stay at [facility] and not be discharged. I educated him that we do have [facility] onsite but I do not believe he will be a candidate. We can have CM look into it. Po pain meds. Xarelto 10mg qd Hold dressing changes unless saturated. Ok to D/C to SNF today. 3008 also signed. F/U in 2 weeks as scheduled. Marta Bryson Nov 23, 2016 07:49
[2016-11-23 08:00] VITALS: BP 167/72; PULSE 83; RESP 18; TEMP 98.6; O2SAT 94
[2016-11-23] MEDS: MAGNESIUM HYDROXIDE SUSP 30 ML CUP PO SCH (09:00)
[2016-11-23] MEDS: SODIUM CHLORIDE 0.9% FLUSH 10 ML FLUSH IV FLUSH SCH (09:01)
[2016-11-23] MEDS: RIVAROXABAN 10 MG TAB PO SCH (12:34)
== END 2016-11-23 12:42 | DRG 470 ==
LOC: HSDI 05:42 → N06B 17:17
PROVIDERS: ADMIT Orthopaedic Surgery Orthopaedic Surgery of the Spine; ATTEND Orthopaedic Surgery Orthopaedic Surgery of the Spine
PROC: 0SR90JA Replacement of Right Hip Joint with Synthetic Substitute, Uncemented, Open Approach (ICD-10-PCS; principal; 2016-11-20 09:04)
DX: M16.11 Unilateral primary osteoarthritis, right hip (principal); Z96.642 Presence of left artificial hip joint; Z68.33 Body mass index [BMI] 33.0-33.9, adult; W01.0XXA Fall on same level from slipping, tripping and stumbling without subsequent striking against object, initial encounter
CPT/HCPCS: 73501; 77290; 77307; 77334; 77336; 77412; 77431; 81001; 85014; 85018; 86850; 86900; 86901; 86920; 90471; 90686; 93005; 94150; C1776; C9290; G0008; J0690; J1100; J1580; J2270; J2370; J2405; J2710; J3010; J3370; J7050; J7120; Q2038